=== PATIENT | female | born 1995 | race African-American/Black ===

== ENCOUNTER 2018-12-09 15:53 | Observation (INO) ==
[2018-12-09] MEDS ORDERED: KETOROLAC 30 MG/1 ML VIAL IV STA (16:21)
[2018-12-09 16:47] LABS: Basophils % 0.3 % (0.0-0.8); Eosinophils # 0.1 10*3/uL (0.0-0.87); Eosinophils % 1.3 % (0.00-10.9); Hematocrit 39.2 VOL% (35.7-47.0); Hemoglobin 12.7 GM/DL (12.0-16.0); Immature Granulocytes % 0.4 %; Immature Granulocytes Absolute 0.03 #; Lymphocytes # 1.4 10*3/uL (1.4-4.0); Lymphocytes % 19.9 % (21.3-54.2); Mean Corpuscular HGB Conc 32.4 GM/DL (32-36); Mean Corpuscular Volume 82.4 FL (87-102); Mean Platelet Volume 10.7 FL (9.6-12.0); Monocytes % 7.9 % (1.7-12.7); Neutrophils % 70.2 % (38.7-73.9); Platelet Count 220 T/CUMM (130-400); Red Blood Count 4.76 MC/CUMM (3.8-5.5); Red Cell Distribution Width 15.3 % (9.3-17.3); White Blood Count 6.8 T/CUMM (4-12)
[2018-12-09 16:49] LABS: Amorphous Crystals,Urine Occasional /HPF (Few); Apearance,Urine CLOUDY (Clear); Bilirubin,Urine Negative (Negative); Blood, Urine Negative (Negative); Glucose,Urine (UA) Negative (Negative); Ketones,Urine Negative (Negative); Mucus,Urine Occasional /LPF (Occasional); Nitrite,Urine Negative (Negative); Protein,Urine Negative; Squamous Epithelial Cell,Urine Occasional /HPF (0-10); Urine Color Amber (Yellow); Urine Specific Gravity 1.019 (1.001-1.035)
[2018-12-09 17:27] LABS: Albumin 3.3 G/DL (3.4-5.0); Bilirubin,Total 1.2 MG/DL (0.2-1.0); Calcium 8.9 MG/DL (8.5-10.1); Osmolality,Calculated 277.4 MOS/KG (273-304); Total Protein 6.9 G/DL (6.4-8.3)
[2018-12-09] MEDS ORDERED: MORPHINE 4 MG/1 ML VIAL IV STA (17:45)
[2018-12-09] MEDS ORDERED: ONDANSETRON 4 MG/2 ML VIAL IM STA (17:45)
[2018-12-09] MEDS ORDERED: ONDANSETRON 4 MG/2 ML VIAL IV STA (18:32)
[2018-12-09] MEDS ORDERED: ONDANSETRON 4 MG/2 ML VIAL IV PRN (19:03)
[2018-12-09] MEDS ORDERED: ACETAMINOPHEN 325 MG TABLET PO PRN (19:03)
[2018-12-09] MEDS: PIPERACILLIN/TAZOBACTAM 3,375 MG in SODIUM CHLORIDE 0.9% 100 ML IV SCH (19:26)
[2018-12-09] MEDS: LACTATED RINGERS 1,000 ML IV SCH (19:26)
[2018-12-09] MEDS: PANTOPRAZOLE 40 MG TABLET PO SCH (22:22)
[2018-12-09] MEDS: MORPHINE 4 MG/1 ML VIAL IV PRN (22:51)
[2018-12-10] MEDS: PIPERACILLIN/TAZOBACTAM 3,375 MG in SODIUM CHLORIDE 0.9% 100 ML IV SCH ×3 (03:48→20:27)
[2018-12-10] MEDS: LACTATED RINGERS 1,000 ML IV SCH ×3 (04:30→19:03)
[2018-12-10] MEDS: MORPHINE 4 MG/1 ML VIAL IV PRN (05:29)
[2018-12-10 05:32] LABS: Basophils % 0.5 % (0.0-0.8); Eosinophils # 0.1 10*3/uL (0.0-0.87); Eosinophils % 1.5 % (0.00-10.9); Hemoglobin 11.9 GM/DL (12.0-16.0); Immature Granulocytes % 0.5 %; Immature Granulocytes Absolute 0.02 #; Lymphocytes # 1.1 10*3/uL (1.4-4.0); Lymphocytes % 26.1 % (21.3-54.2); Mean Corpuscular HGB Conc 33.1 GM/DL (32-36); Mean Corpuscular Volume 80.9 FL (87-102); Monocytes % 10.7 % (1.7-12.7); Neutrophils % 60.7 % (38.7-73.9); Platelet Count 177 T/CUMM (130-400); Red Blood Count 4.45 MC/CUMM (3.8-5.5); Red Cell Distribution Width 15.5 % (9.3-17.3)
[2018-12-10 05:45] LABS: Albumin 2.8 G/DL (3.4-5.0); Calcium 8.7 MG/DL (8.5-10.1); Osmolality,Calculated 280.3 MOS/KG (273-304); Total Protein 6.2 G/DL (6.4-8.3)
[2018-12-10] MEDS: PANTOPRAZOLE 40 MG TABLET PO SCH (09:31)
[2018-12-10] MEDS: diphenhydrAMINE 50 MG/1 ML VIAL IV PRN ×2 (14:33→21:08)
[2018-12-11] MEDS: PIPERACILLIN/TAZOBACTAM 3,375 MG in SODIUM CHLORIDE 0.9% 100 ML IV SCH ×3 (03:04→20:16)
[2018-12-11 06:33] LABS: Albumin 2.6 G/DL (3.4-5.0); Bilirubin,Total 0.7 MG/DL (0.2-1.0); Calcium 8.7 MG/DL (8.5-10.1); Osmolality,Calculated 278.3 MOS/KG (273-304); Total Protein 6.4 G/DL (6.4-8.3)
[2018-12-11] MEDS ORDERED: INDOMETHACIN SUPP 50 MG SUPP RECTAL ONE (06:35)
[2018-12-11] MEDS: LACTATED RINGERS 1,000 ML IV SCH ×3 (07:15→19:03)
[2018-12-11 08:03] LABS: Basophils % 0.2 % (0.0-0.8); Eosinophils # 0.1 10*3/uL (0.0-0.87); Eosinophils % 2.2 % (0.00-10.9); Hematocrit 36.5 VOL% (35.7-47.0); Hemoglobin 11.3 GM/DL (12.0-16.0); Immature Granulocytes % 0.4 %; Immature Granulocytes Absolute 0.02 #; Lymphocytes # 1.6 10*3/uL (1.4-4.0); Lymphocytes % 30.9 % (21.3-54.2); Mean Platelet Volume 10.6 FL (9.6-12.0); Monocytes % 9.1 % (1.7-12.7); Neutrophils % 57.2 % (38.7-73.9); Platelet Count 167 T/CUMM (130-400); Red Cell Distribution Width 15.7 % (9.3-17.3); White Blood Count 5.1 T/CUMM (4-12)
[2018-12-11 08:10] LABS: INR 0.9; PT Patient Result 9.8 SECS
[2018-12-11] MEDS: PANTOPRAZOLE 40 MG TABLET PO SCH (09:00)
[2018-12-11 18:11] LABS: Albumin 2.7 G/DL (3.4-5.0); Bilirubin,Total 0.6 MG/DL (0.2-1.0); Calcium 8.6 MG/DL (8.5-10.1); Osmolality,Calculated 275.4 MOS/KG (273-304); Total Protein 6.8 G/DL (6.4-8.3)
[2018-12-11] MEDS: diphenhydrAMINE 50 MG/1 ML VIAL IV PRN (18:46)
[2018-12-12] MEDS: LACTATED RINGERS 1,000 ML IV SCH ×2 (03:19→11:16)
[2018-12-12] MEDS: PIPERACILLIN/TAZOBACTAM 3,375 MG in SODIUM CHLORIDE 0.9% 100 ML IV SCH ×2 (03:20→11:16)
[2018-12-12] MEDS: diphenhydrAMINE 50 MG/1 ML VIAL IV PRN (03:21)
[2018-12-12 06:12] LABS: Albumin 2.8 G/DL (3.4-5.0); Bilirubin,Total 0.6 MG/DL (0.2-1.0); Calcium 9.1 MG/DL (8.5-10.1); Osmolality,Calculated 278.3 MOS/KG (273-304); Total Protein 6.6 G/DL (6.4-8.3)
[2018-12-12] MEDS: PANTOPRAZOLE 40 MG TABLET PO SCH (08:48)
[2018-12-12 12:04] VITALS: BP 127/37
== END 2018-12-12 15:00 | disposition home or self-care (01) ==
LOC: N.EDINP 15:53 → N.ED 15:53 → N.EDINP 18:52 → N.3E 19:01
PROVIDERS: ADMIT Student in an Organized Health Care Education/Training Program; ATTEND Student in an Organized Health Care Education/Training Program